=== PATIENT | male | born 1995 | race Asian ===

== ENCOUNTER 2021-12-14 19:20 | Outpatient (CLI) | payer OTHER | END 2021-12-14 19:21 | disposition home or self-care (01) | LOC: SC 19:20 | PROVIDERS: ATTEND Nurse Practitioner Family | DX: R06.83 Snoring (principal); G47.8 Other sleep disorders; R06.81 Apnea, not elsewhere classified; G47.10 Hypersomnia, unspecified | CPT/HCPCS: 95810 ==

== ENCOUNTER 2022-01-06 14:01 | Outpatient (CLI) | payer OTHER ==
[2022-01-06 14:24] VITALS: BP 130/70
--- NOTE | 2022-01-06 14:24 | SLEEP CARE CONSULTATION ---
Information from patient questionnaire entered by Calin Rizzo. I have reviewed and concur with the information entered by Calin Rizzo. This document represents the service I personally performed and the decisions made by , Eri Ignacio ARNP. History of Present Illness Service Date and Time: 01/06/2022 1401 Initial [place] Sleepiness Scale score: 15 (11/23/2021) Current [place] Sleepiness Scale score: 17 (01/06/22) Additional HPI information: RENATA LEVY returns for follow up and results of the recently performed polysomnography. The patient was informed of the following findings: No significant sleep disordered breathing with an average AHI of 3.2 and jonatan oxygen saturation of 84%. I explained the pathophysiology behind obstructive sleep apnea. Patient does not have sleep apnea and was advised how weight gain could increase the risk of developing sleep apnea in the future. I strongly encouraged the patient to lose weight. Patient has mild snoring. Snoring can be reduced by weight loss. Weight loss is best achieved with diet consult. Patient instructed to contact PCP for referral. Snoring can also be treated with an oral appliance from a dentist. Advised to check insurance coverage. In addition, an ENT evaluation can be do to see if other treatment is indicated. Patient counseled not drink alcohol less than 4 hours before bedtime as it can increase snoring and apnea. Patient was cautioned about risks of drowsy driving until sleepiness symptoms resolve. Sleep Study - Results Type of Sleep Study: Polysomnography (DONE ON 12/14/21) Prior sleep studies: No Polysomnography/Home Sleep Study results: IMPRESSION: The quality of the study is good. The patient had normal sleep efficiency. The sleep architecture was relatively normal as well considering the first night effect. Respiratory monitoring showed no significant sleep disordered breathing obstructive sleep apnea-hypopnea (AHI = 3.2) associated with frequent arousals, oxyhemoglobin desaturation and mild hypoxia (jonatan oxygen saturation of 84% but only 0.13% to the total sleep time was spent with oxygen saturation below 90%). The patient slept mostly supine (supine AHI = 3.9; non-supine = 0.00). Snore was infrequent and light in intensity. There was no significant periodic leg movement of sleep. Cardiac rhythm was normal sinus rhythm without significant arrhythmia. No abnormal behavior (parasomnia) observed during the night. Allergies and Home Medications Drug allergies reviewed: Yes (NKDA) Home medication list reviewed: Yes (no changes) Review of Systems Review of systems same as previous: Yes (no changes) Physical Exam Vital signs obtained and entered by: JAHAIRA MITTAL Blood Pressure: 130/70 (left arm ) Cuff size: regular Heart Rate: 74 O2 Saturation: 100 Height: 5 ft 7 in Weight: 203 lb Body Mass Index: 31.8 BMI Classification: Obese Impression and Plan 1. Snoring, mild, but no significant sleep disordered breathing. Patient advised that often weight loss will reduce snoring as well as apnea risk. An oral appliance can also be used for snoring. This would require a dental consultation. Patient cautioned not to use other online appliances as can cause bite issues. A list of accredited dentists in [facility] and one local dentist who [place] es oral appliances is available in office. Patient is advised to check if insurance will cover. An ENT consult can also be helpful to determine if any other treatment is an option. 2. Insomnia, delay in sleep onset. Insomnia is generally caused by an irregular sleep schedule, spending too much time in bed, napping, caffiene, electronics, lack of a relaxing bedtime ritual and clock watching. Other factors can include anxiety/depression, pain, medications, and obstructive sleep apnea. First I counseled the patient on the importance of a regular sleep schedule, starting with the wake time. I explained the homestatic sleep drive and how maintaining a regular wake time will allow the patient to be tired enough to sleep 15-16 hours later. By waking at the same time, the patient will also feel more alert. Additionally too much time spent in bed can cause more sleep disruption as most people only need 7-9 hours of sleep. Thus patient advised to restrict time in bed to 7-8 hours. Naps are to be avoided unless overcome by sleepiness. Then naps are to be restricted to one hour and before 3 pm so as not to interfere with nighttime sleep. Most caffeine is to be stopped after lunch as it has a 6 hour half life and reduce sleep latency and efficiency. In addition, it is important to have a relaxing ritual about 30-60 minutes before bedtime to allow the mind/body transition from an active day to sleep. Electronics should be avoided 1-2 hours before bedtime as the bright light can reduce the endogenous melatonin and the activity of the computer, tablet, cell phone etc can be alerting. TV is okay but content needs to be relaxing and the brightness dimmed. [employer] How to Sleep Better pamphlet given and reviewed. * Attempt to lose weight * Avoid alcohol consumption near bedtime * The patient is cautioned about driving until sleepiness is completely resolved. * Return as needed for follow up. Counseling Topics: Weight loss health impact Visit Type: In Office Time Spent with Patient (minutes): 15 Provider Statement: I spent 100% of the Face to Face Visit with the patient with greater than 50% spent counseling the patient and coordination of care.
== END 2022-01-06 14:02 | disposition home or self-care (01) ==
LOC: SC 14:01
PROVIDERS: ATTEND Nurse Practitioner Family
DX: R06.83 Snoring (principal); G47.09 Other insomnia; E66.9 Obesity, unspecified; Z68.31 Body mass index [BMI] 31.0-31.9, adult
CPT/HCPCS: 99212